=== PATIENT | female | born 1990 | race Caucasian/White ===

== ENCOUNTER 2019-01-03 23:31 | Emergency (ER) | payer SELFPAY ==
[~2019-01-03] VITALS: Ht 180.3 cm; Wt 115.5 kg
[2019-01-03 23:36] VITALS: BP 125/79
[2019-01-04] MEDS ORDERED: IBUPROFEN 800 MG TABLET ONE (00:40)
[2019-01-04] MEDS ORDERED: IBUPROFEN 800 MG TABLET PO ONE (01:00)
== END 2019-01-04 01:09 | disposition home or self-care (01) ==
LOC: ED 01-04 00:23
DX: S93.492A Sprain of other ligament of left ankle, initial encounter (principal); W01.0XXA Fall on same level from slipping, tripping and stumbling without subsequent striking against object, initial encounter; Y93.39 Activity, other involving climbing, rappelling and jumping off; Y92.009 Unspecified place in unspecified non-institutional (private) residence as the place of occurrence of the external cause; Y99.8 Other external cause status
CPT/HCPCS: 99283

== ENCOUNTER 2019-04-27 15:37 | Emergency (ER) | payer SELFPAY ==
[~2019-04-27] VITALS: Ht 180.3 cm; Wt 112.3 kg
[2019-04-27 15:43] VITALS: BP 160/90
--- NOTE | 2019-04-27 15:47 | NUR ---
BREAK RN FOR PRIMARY RN JESSI. PT AMBULATORY TO [facility] FROM TRIAGE WITH STEADY GAIT, TALKATIVE AND LAUGHING WITH HER FAMILY/FRIENDS. JADA MCGUIRE AT BEDSIDE FOR EVALUATION. CMS INTACT, RADIAL PULSE NORMAL AND STRONG. SKIN PWD. NO DEFORMITY NOTED. CALL LIGHT IN REACH. FALL PRECAUTIONS IN PLACE. SIDE RAILS UPX2. A&OX4.
[2019-04-27] MEDS ORDERED: IBUPROFEN 600 MG TABLET PO ONE (16:00)
--- NOTE | 2019-04-27 16:08 | NUR ---
BREAK RN. PT IN RAD, TO MEDICATE UPON RETURN
[2019-04-27] MEDS ORDERED: IBUPROFEN 200 MG TABLET ONE (16:14)
--- NOTE | 2019-04-27 16:19 | NUR ---
BREAK RN. PT MEDICATED NOTED IN ERMAR PER JADA MCGUIRE FOR 6/10 PAIN IN LEFT ELBOW. BEDSIDE REPORT AND CARE TO PRIMARY RN JESSI.
== END 2019-04-27 16:42 | disposition home or self-care (01) ==
LOC: ED 16:16
DX: M77.12 Lateral epicondylitis, left elbow (principal)
CPT/HCPCS: 99283